=== PATIENT | female | born 1940 | race Caucasian/White ===

== ENCOUNTER → 2023-04-05 13:10 | Outpatient (CLI) | payer OTHER, SELFPAY ==
--- NOTE | ~2023-04-05 | DEXA_ITS ---
Bone Density Report Name: TIMOTEO GONZALES Age: 82 Sex: Female Ethnicity: White Date of : 1940 Indication: osteopenia; height loss; prior fracture; postmenopausal Referring Provider: FRANSISCO, EDDIE Study: Bone densitometry was performed. Exam Date: April 05, 2023 Accession number: [id number] Bone Density: Region BMD T-score Z-score Classification AP Spine (L1, L3, L4) 0.740 -2.8 -0.1 Osteoporosis Femoral Neck (Left) 0.629 -2.0 0.4 Osteopenia Total Hip (Left) 0.659 -2.3 -0.2 Osteopenia Femoral Neck (Right) 0.593 -2.3 0.1 Osteopenia Total Hip (Right) 0.666 -2.3 -0.1 Osteopenia Total Hip Mean 0.663 -2.3 -0.2 Osteopenia World Health Organization criteria for BMD impression classify patients as: Normal (T-score at or above -1.0), Osteopenia (T-score between -1.0 and -2.5), or Osteoporosis (T-score at or below -2.5). 10-year Fracture Risk: FRAX not reported because: Some T-score for Spine Total or Hip Total or Femoral Neck at or below -2.5 Previous Exams: Region Exam Age BMD T-score BMD Change BMD Change Date g/cm2 vs Baseline vs Previous AP Spine(L1, L3, L4) 04/05/2023 82 0.740 -2.8 -0.115* -0.115* 02/16/2007 66 0.855 -1.8 Total Hip(Left) 04/05/2023 82 0.659 -2.3 -0.107* -0.107* 02/16/2007 66 0.767 -1.4 Total Hip(Right) 04/05/2023 82 0.666 -2.3 -0.142* -0.142* 02/16/2007 66 0.808 -1.1 *Denotes significance at 95% confidence level, LSC for AP Spine = 0.022 g/cm2, LSC for Total Hip = 0.027 g/cm2 Clinical Information Provided by Patient: Has had a low trauma fracture Has used the following medications: Vitamin D Patient maximum height was 68 Menopause Age: 63 Drinks caffeinated beverages Onset of menses at age 14 Number of children 2 Impression: The patient has established osteoporosis, based on the Total Spine T-score and the existence of a prior fracture. The patient has risk factors, including: previous fracture. The BMD for the AP Spine(L1, L3, L4) decreased, changing by -0.115 since the last DXA exam. The BMD for the Total Hip(Left) decreased, changing by -0.107 since the last DXA exam. The BMD for the Total Hip(Right) decreased, changing by -0.142 since the last DXA exam. Discussion: HIGH RISK OF FRACTURE. BONE DENSITY IS UNDESIRABLY LOW AT ONE OR MORE SKELETAL SITES, CONSISTENT WITH POSTMENOPAUSAL OSTEOPOROSIS. This patient's lowest T-score, in a patient who has previousl
== END ==
PROVIDERS: PCP Nurse Practitioner Family; Visit Provider Nurse Practitioner Family
DX: Z78.0 Asymptomatic menopausal state (principal); Z13.820 Encounter for screening for osteoporosis; M85.89 Other specified disorders of bone density and structure, multiple sites
CPT/HCPCS: 77080

== ENCOUNTER → 2023-05-26 10:41 | Outpatient (CLI) | payer OTHER, SELFPAY ==
--- NOTE | ~2023-05-26 | XR_ITS ---
XR chest 2V 05/26/2023 10:57 Indication: Shortness of breath Procedure: 2 view chest Comparison: No prior studies for comparison. Findings: There is evidence for chronic granulomatous disease. Shallow aspiration with crowding of th e pulmonary vessels. Possible small effusions. Bibasilar dependent atelectasis. Impression: 1: Bibasilar atelectasis. 2: Blunting of the posterior costophrenic recesses, cannot exclude small effusion. Reviewed, dictated and finalized at location L. Impression: 1: Bibasilar atelectasis. 2: Blunting of the posterior costophrenic recesses, cannot exclude small effusi on.
== END ==
PROVIDERS: PCP Nurse Practitioner Family; Visit Provider Nurse Practitioner Family
DX: R06.02 Shortness of breath (principal); J98.11 Atelectasis; Z87.891 Personal history of nicotine dependence
CPT/HCPCS: 71046

== ENCOUNTER 2024-10-12 08:08 | Outpatient (CLI) | payer BC, SELFPAY ==
--- NOTE | ~2024-10-12 | XR_ITS ---
CHEST RADIOGRAPH, PA AND LATERAL CLINICAL HISTORY: dyspnea . COMPARISON: 05/26/2023 TECHNIQUE: PA and lateral views of the chest. FINDINGS Redemonstration of prominence of the right hilum secondary to calcified lymph nodes, likely from prio r granulomatous disease. Large hiatal hernia is redemonstrated, with air-fluid levels in the mediastinum. The remainder of the cardiomediastinal silhouette is otherwise unremarkable. Calcified granuloma redemonstrated within the right upper lobe. The remainder of the lungs are clear. IMPRESSION: No focal infiltrate or effusion. Large hiatal hernia with air-fluid levels in the mediastinum. Reviewed, dictated and finalized at location A.
--- OUTSIDE RECORDS SUMMARY | 2024-10-12 08:36 | XMS_ITS | Clinical Summary ---
Author Organization [facility] Address [address] [place] [address] Care Team Providers Care Printed Circuit Board Layout Designer Name Role Phone Tabitha Aponte NP Primary Care Provider [phone] Allergies Active Allergy Reactions Criticality Noted Date Comments Adhesive Rash Medium 05/31/2023 Band-aids are ok but tape is worse... paper tape ok Alcohol Stomach upset Low 01/30/2018 Alendronate Fatigue Low 08/29/2023 Honey Swelling Medium 12/30/2015 Naproxen Unknown Low 01/11/2019 Told not to take it by a pharmacist because of a drug allergy Sulfa (Sulfonamide Antibiotics) Angioedema High 12/30/2015 Medications albuterol HFA (PROVENTIL HFA,VENTOLIN HFA,PROAIR HFA) 90 mcg/actuation inhalerIndications: Chest congestion Inhale 2 puffs every 6 (six) hours as needed for wheezing 3 each 4 3 Active cetirizine (ZyrTEC) 10 mg tablet Take 1 tablet (10 mg total) by mouth daily Active cholecalciferol, vitamin D3, 1,000 unit tablet,chewable Take 1 tablet/chew tab by mouth daily Active calcium citrate 250 mg calcium tablet tablet Take 1 tablet (250 mg total) by mouth daily Active amiodarone (PACERONE) 100 mg tablet Take 1 tablet (100 mg total) by mouth daily 90 tablet 3 4 Active rivaroxaban (XARELTO) 20 mg tabletIndications:a trial fibrillation Take 1 tablet (20 mg total) by mouth daily with dinner 90 tablet 3 4 02/15/20 25 Active atorvastatin (LIPITOR) 40 mg tabletIndications:H yperlipidemia, unspecified hyperlipidemia type Take 1 tablet (40 mg total) by mouth nightly 90 tablet 1 4 Active furosemide (LASIX) 40 mg tabletIndications:A cute congestive heart failure, unspecified heart failure type (HCC) Take 1 tablet (40 mg total) by mouth daily 90 tablet 1 4 Active metoprolol tartrate (LOPRESSOR) 25 mg immediate release tabletIndications:H ypertension, essential Take 1 tablet (25 mg total) by mouth 2 (two) times a day 180 tablet 3 4 Active omeprazole (PriLOSEC) 20 mg capsuleIndications: Gastroesophageal reflux disease without esophagitis Take 1 capsule (20 mg total) by mouth 2 (two) times a day 180 capsule 3 4 Active potassium chloride ER 20 mEq CR tabletIndications:A cute congestive heart failure, unspecified heart failure type (HCC) Take 1 tablet (20 mEq total) by mouth daily 90 tablet 1 4 Active Active Problems Problem Noted Date Diagnosed Date Hypertension, essential 04/20/2024 Overview (04/20/2024): Continue metoprolol and amiodarone as directed. Blood pressure well controlled at 124/64 Hyperlipidemia 04/20/2024 Overview (04/20/2024): Continue atorvastatin 40 mg daily Other thrombophilia 12/20/2023 Paroxysmal atrial fibrillation 06/20/2023 Acute congestive heart failure 06/06/2023 Overview (06/06/2023): Continue Lasix daily as directed. Monitor for swelling Paleo daily weights Cerebrovascular accident (CVA), unspecified mech anism 05/27/2023 Chest congestion 05/26/2023 Class 1 obesity due to exces s calories without serious comorbidity with body mass index (BMI) of 34.0 to 34.9 in adult 05/26/2023 Assessment & Plan (04/20/2024 8:44 AM CDT): Discussed the patients BMI: The BMI is above average BMI management is complete. BMI follow-up includes: Nutrition Counseling and education provided Discussed the patients BMI: The BMI is above average BMI management is complete. BMI follow-up includes: Nutrition Counseling and education provided Chronic bilateral low back pain without sciatica 04/20/2023 BMI 34.0-34.9,adult 10/14/2022 Assessment & Plan (04/20/2023 9:03 AM CDT): Discussed the patients BMI: The BMI is above average BMI management is complete. BMI follow-up includes: Nutrition Counseling and education provided Assessment & Plan (10/14/2022 8:36 AM CDT): Discussed the patient's BMI. The BMI is above average. BMI management plan is completed. BMI Follow-up includes: nutrition counseling, exercise counseling and education provided. 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 BMI follow-up includes: Nutrition Counseling and education provided Assessment & Plan (07/05/2023 10:41 AM THIMBLE PRESS OPERATOR): Discussed the patients BMI: The BMI is above average BMI management is complete. BMI follow-up includes: Nutrition Counseling and education provided Assessment & Plan (06/03/2023 2:28 PM CDT): Discussed the patients BMI: The BMI is above average BMI management is complete. BMI follow-up includes: Nutrition Counseling and education provided Assessment & Plan (02/10/2022 12:37 PM CDT): Discussed the patient's BMI. The BMI is above average. BMI management plan is completed. BMI Follow-up includes: nutrition counseling, exercise counseling and education provided. Assessment & Plan (07/16/2021 7:23 AM THIMBLE PRESS OPERATOR): Obesity is unchanged. Discussed the patient's BMI. The BMI is above average. BMI management plan is completed. BMI Follow-up includes: nutrition counseling, exercise counseling and education provided. 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 Keratoconjunctivitis sicca, not specified as Sjogren's, bilateral 07/14/2021 Open angle with borderline findings, low risk, b ilateral 07/14/2021 Squamous blepharitis left upper eyelid 1 Radius and ulna distal fract ure, right, closed, initial encounter 07/14/2021 Vitamin D deficiency 05/28/2021 Assessment & Plan (07/16/2021 7:20 AM THIMBLE PRESS OPERATOR): labs entered, will notify patient of results as available Closed fracture of upper end of right ulna with routine healing 05/27/2021 Seasonal allergies 05/06/2020 Age-related nuclear cataract, bilateral 01/12/20 19 Prediabetes 12/09/2016 Gastroesophageal reflux disease without esophagi tis 12/08/2015 Assessment & Plan (07/16/2021 7:21 AM THIMBLE PRESS OPERATOR): Continue medication same at this time Hiatal hernia 07/21/2015 Assessment & Plan (07/16/2021 7:20 AM THIMBLE PRESS OPERATOR): Continue prilosec same dosing at this time Infection of bone of left ankle 05/04/2015 Painful orthopaedic hardware 05/04/2015 Resolved Problems Problem Noted Date Diagnosed Date Resolved Date Longstanding persistent atrial fibrillation 06/03/2023 06/20/2023 Encounter to establish care 07/16/2021 02/10/2022 BMI 37.0-37.9, adult 07/16/2021 022 Assessment & Plan (07/16/2021 7:23 AM THIMBLE PRESS OPERATOR): Obesity is unchanged. Discussed the patient's BMI. The BMI is above average. BMI management plan is completed. BMI Follow-up includes: nutrition counseling, exercise counseling and education provided. Refused influenza vaccine 07/21/2015 Ankle wound 06/11/2015 02/10/2022 Encounters Date Type Department Care Team Description 10/03/2024 1:00 PM THIMBLE PRESS OPERATOR Office Visit [facility] [address] [place] [phone] Sultan Joseph Brizuela MD Exertional dyspnea (Primary Dx); On amiodarone therapy from Last 3 Months Immunizations Immunization Administration Dates Next Due Influenza, Quadrivalent, Hig h Dose, Preservative Free, Intrr 06/01/2023 Influenza, Quadrivalent, Rec ombinant, Egg Free, Preservative Free, Intramuscular 05/06/2020 Influenza, Trivalent, High D ose, Split, Preservative Free, Intramuscular 05/10/2019,04/17/2018,06/08/2016 Influenza, Unspecified 08/01/2022(Deferr ed: Patient Refused),08/01/2022(Deferred: Patient Refused),06/01/2022,05/10/2019, 018,06/08/2016 Pfizer SARS-CoV-2 Monovalent Vaccination (12+ Yrs) PURPLE 01/15/2022,07/27/2021,01/07/2021,12/02 Pneumococcal Conjugate PCV 13 09/23/2016 Pneumococcal Polysaccharide PPV23 07/23/2015 Tdap 02/08/2018 Surgical History Surgery Date Site/Laterality Comments FRACTURE SURGERY CATARACT EXTRACTION HERNIA REPAIR Medical History Medical History Date Comments GERD (gastroesophageal reflux disease) Allergic Family History Medical History Relation Name Comments Heart disease Father Hypertension Father Heart disease Mother Hypertension Mother Ovarian cancer Mother perforated bowel Mother Relation Name Status Comments Father Mother Social History Tobacco Use Types Packs/Day Years Used Date Smoking Tobacco: Former Cigarettes 1 7 1991 Smokeless Tobacco: Never Tobacco Cessation:Counseling Given: Not Answered Social Connection and Isolat ion Panel [NHANES] Answer Date Recorded In a typical week, how many times do you talk on the phone with family, friends, or neighbors? More than three times a week 05/30/2023 How often do you get togethe r with friends or relatives? More than three times a week 05/30/2023 How often do you attend chur or caodaism services? Never 05/30/2023 Do you belong to any clubs o r organizations such as adventism groups, unions, fraternal or athletic groups, or school groups? No 05/30/2023 How often do you attend meet ings of the clubs or organizations you belong to? Never 05/30/2023 Are you , , di vorced, , never , or living with a partner? 05/30/2023 AUDIT-C Answer Date Recorded Q1: How often do you have a drink containing alcohol? Never 02/10/2022 Q2: How many drinks containi ng alcohol do you have on a typical day when you are drinking? Patient does not drink Q3: How often do you have si x or more drinks on one occasion? Never 02/10/2022 Overall Financial Resource Strain (CARDIA) Answe r Date Recorded How hard is it for you to pa y for the very basics like food, housing, medical care, and heating? Not very hard 05/31/2023 PHQ-2 Answer Date Recorded PHQ-2 Total Score (If total score is 3 or more points, staff should administer the PHQ-9) 0 04/20/2024 Hunger Vital Sign Answer Date Recorded Within the past 12 months, y ou worried that your food would run out before you got the money to buy more. Never true 05/30/20 23 Within the past 12 months, t he food you bought just didn't last and you didn't have money to get more. Never true 05/30/2023 PRAPARE - Transportation Answer Date Re corded In the past 12 months, has l ack of transportation kept you from medical appointments or from getting medications? No 05/03 In the past 12 months, has l ack of transportation kept you from meetings, work, or from getting things needed for daily living? No 05/30/2023 Housing Stability Vital Sign Answer Ned e Recorded In the last 12 months, was t here a time when you were not able to pay the mortgage or rent on time? No 05/30/2023 In the last 12 months, how many places have you lived? 1 05/30/2023 In the last 12 months, was t here a time when you did not have a steady place to sleep or slept in a longterm (including now)? No 05/30/2023 Personal Safety Answer Date Recorded Have you ever been in or are you currently in a harmful physical or emotional relationship or is someone making you feel afraid or unsafe? Denies 05/27/2023 Comments No Sex and Gender Information Value Date Recorded Sex Assigned at Not on file Legal Sex Female 7:10 PM THIMBLE PRESS OPERATOR Gender Identity Not on file Sexual Orientation Not on file Obstetrics History Last Filed Vital Signs Vital Sign Reading Time Taken Comments Blood Pressure 128/64 10/03/2024 12:56 PM THIMBLE PRESS OPERATOR Pulse 53 10/03/2024 12:56 PM THIMBLE PRESS OPERATOR Temperature 36.9 C (98.4 F) 04/20/2024 8:34 AM CDT Respiratory Rate 16 06/01/2023 10:58 AM CDT Oxygen Saturation 96% 10/03/2024 12:56 PM THIMBLE PRESS OPERATOR Inhaled Oxygen Concentration - - Weight 83.5 kg (184 lb) 10/03/2024 12:56 PM THIMBLE PRESS OPERATOR Height 157.5 cm (5' 2 ) 04/20/2024 8:34 AM CDT Body Mass Index 33.65 04/20/2024 8:34 AM CDT Plan of Treatment Health Maintenance Due Date Last Done Comments Hepatitis B Screening 1958 Zoster Vaccine (1 of 2) 1991 Covid-19 Vaccine (2023-2 5 season) 2024 01/15/2022, 07/27/2021, 01/07/2021, Additional history exists Influenza Vaccine (#1) 2024 , 06/01/2022, 05/06/2020, Additional history exists Well Visit 65+ 10/18/2024 10/19/2023, 04/02, 02/10/2022 Osteoporosis Screening-Bone Density Scan 04/11/2025 04/11/2023 Depression Screening 04/20/2025 04/20/2024, 10/19/2023, 07/05/2023, Additional history exists Fall Risk Assessment 04/20/2025 04/20/2024, 10/19/2023, 07/05/2023, Additional history exists DTaP/Tdap/Td Vaccine (2 - Td or Tdap) 02/09/2028 02/08/2018 Pneumococcal vaccine 65+ Completed 09/23/2016, 07/02 Procedures Procedure Name Priority Date/Time Associated Diagnosis Comments DEXA AXIAL SKELETON BONE DENSITY 1 OR MORE SITES Schedule Routine, Read Routine (OP Routine) 04/11/2023 Menopause from Last 3 Months or Most Recently Relevant to Health Maintenance Results * Dexa Axial Skeleton Bone Density 1 or 2 Site (04/11/2023) Anatomical Region Laterality Modality Body N/A Radiographic Negra ging Nelida GREWAL IMG DXA PROCEDURES Final R esult from Last 3 Months or Most Recently Relevant to Health Maintenance Insurance MEDICARE ANTHEM ACCESS Advance Directives For more information, please contact: [phone] * Full Code (Latest Code Status on File) Date Activated Date Inactivated Comments 05/27/2023 10:19 PM 06/01/2023 9:09 PM Care Teams Printed Circuit Board Layout Designer Relationship Specialty Start Date End Date Tabitha Aponte NP [address] [facility] [address] [place] [address] PCP - General Internal Medicine 10/14/22
--- OUTSIDE RECORDS SUMMARY | 2024-10-12 08:36 | XMS_ITS | Encounter Summary ---
Author Organization [facility] Address [address] [facility] [place] [address] Care Team Providers Care Client Relationship Manager Name Role Phone Tonia Chi MD Unavailable Kodi Salvador MD Primary Care Provider [phone] Narciso Medrano MD Primary Care Provider [phone] Kodi Rico MD Primary Care Provider Shasta Jean SHEET METAL LAY OUT WORKER-CEMENT RAILROAD CAR LOADER Unavailable [phone] Narciso Medrano MD Primary Care Provider Narciso Medrano MD Primary Care Provider [phone] Encounter Details Date Type Department Care Team (Late st Contact Info) Description 04/24/2015 [facility] Outpatient Visit [facility] Health Orthopedics [address] [place] [address] Eva Sky MD [address] [place] [id number] Social History Tobacco Use Types Packs/Day Years Used Date Smoking Tobacco: Former Alcohol Use Standard Drinks/Week Comments No 0 (1 standard drink = 0.6 oz pur e alcohol) Sex and Gender Information Value Date Recorded Sex Assigned at Female 08/07/2021 9:06 AM CENTRIFUGE SEPARATOR TENDER Gender Identity Female 08/07/2021 9:06 AM CENTRIFUGE SEPARATOR TENDER Sexual Orientation Straight 08/07/2021 9: 06 AM CENTRIFUGE SEPARATOR TENDER documented as of this encounter Plan of Treatment Not on file documented as of this encounter Visit Diagnoses Not on filedocumented in this encounter Care Teams Client Relationship Manager Relationship Specialty Start Date End Date Kodi Salvador MD [address] [place] [id number] PCP - General Family Medicine 04/16/15 07/20/15 Narciso Medrano MD [address] [place] [address] PCP - General Family Medicine 07/21/15 01/10/19 Kodi Rico MD [address] [place] [id number] PCP - General 01/11/19 02/05/19 Narciso Medrano MD [address] [place] [id number] PCP - General 05/20/21 07/09/21 Narciso Medrano MD [address] [place] [id number] PCP - General 08/17/21 Tonia Chi MD Orthopedic Surgery 04/04/13 07/20/15 Shasta Jean APRN-CARYN [address] [facility] [place] [address] Nurse Practitioner Family 01/01/2107/09/21 documented as of this encounter
--- OUTSIDE RECORDS SUMMARY | 2024-10-12 08:36 | XMS_ITS | Encounter Summary ---
Author Organization [facility] Facility Care Team Providers Care Defect Repairer Glassware Name Role Phone Narciso Medrano MD Primary Care Provider [phone] Nelida Bunn Primary Care Provider [phone] Tabitha Aponte NP Primary Care Provider [phone] Encounter Details Date Type Department Care Team (Latest Contact Info) Description 04/16/2015 Orders Only [facility] ProviderAlexander MD [address] [place] [id number] Social History Tobacco Use Types Packs/Day Years Used Date Smoking Tobacco: Never Assessed Comments Unknown Sex and Gender Information Value Date Recorded Sex Assigned at Not on file Legal Sex Female 7:10 PM CHANNEL MACHINE OPERATOR Gender Identity Not on file Sexual Orientation Not on file documented as of this encounter Plan of Treatment Not on file documented as of this encounter Procedures Procedure Name Priority Date/Time Associated Diagnosis Comments PROCEDURE - RESULT 04/16/2015 12 :00 AM CDT documented in this encounter Results * PROCEDURE - RESULT (04/16/2015 12:00 AM CDT) Narrative 04/16/2015 12:00 AM CDT Ordered by an unspecified provider. Historical Provider Final Res ult documented in this encounter Visit Diagnoses Not on filedocumented in this encounter Additional Health Concerns Infection Onset Date Last Indicated Resolved Time COVID: Suspected 05/26/2023 05/26/2023 05/26/2023 9:35 AM CDT documented as of this encounter Care Teams Defect Repairer Glassware Relationship Specialty Start Date End Date Narciso Medrano MD PCP - General Family Medicine 07/07/19 03/07/22 Nelida Bunn PA PCP - General Aircraft Maintenance Technician 03/08/22 10/13/22 Tabitha Aponte NP [address] [address] PCP - General Internal Medicine 10/14/22 documented as of this encounter
--- OUTSIDE RECORDS SUMMARY | 2024-10-12 08:36 | XMS_ITS | Encounter Summary ---
Author Organization [facility] Address [address] [place] [address] Care Team Providers Care Rand Butter Name Role Phone Narciso Medrano MD Primary Care Provider [phone] Kodi Rico MD Primary Care Provider [phone] Shasta Jean NUMEROLOGIST-DOOR LINER Unavailable [phone] Narciso Mderano MD Primary Care Provider [phone] Narciso Medrano MD Primary Care Provider [phone] Encounter Details Date Type Department Care Team (Late st Contact Info) Description 12/09/2016 [facility] Outpatient Visit [facility] [address] [place] [address] Narciso Medrano MD [address] [place] [address] Social History Tobacco Use Types Packs/Day Years Used Date Smoking Tobacco: Former Cigarettes 0.3 25 0 08/01/1967 - 08/01/1992 Smokeless Tobacco: Never Alcohol Use Standard Drinks/Week Comments No 0 (1 standard drink = 0.6 oz pur e alcohol) Sex and Gender Information Value Date Recorded Sex Assigned at Female 08/07/2021 9:06 AM SHINGLE BOLT CUTTER Gender Identity Female 08/07/2021 9:06 AM SHINGLE BOLT CUTTER Sexual Orientation Straight 08/07/2021 9: 06 AM SHINGLE BOLT CUTTER documented as of this encounter Functional Status Functional Status Response Date of Assess ment Is person deaf or have serious hearing difficult y? No 05/02/2015 Is person blind or have serious difficulty seein g? No 05/02/2015 Does person have serious dif ficulty walking/climbing stairs? No 05/02/2015 Does person have difficulty dressing/bathing? No 05/02/2015 Does person have difficulty doing errands alone? No 05/02/2015 Cognitive Status Response Date of Assessm ent Does person have difficulty concentrating/remembering/making decisions? No 05/02/2015 documented as of this encounter Plan of Treatment Not on file documented as of this encounter Goals Goal Patient Goal Type Associated Problems Recent Progress Patient-Stated? Author Have labs drawn Lifestyle No Harper Pierre MA documented as of this encounter Visit Diagnoses Not on filedocumented in this encounter Care Teams Rand Butter Relationship Specialty Start Date End Date Narciso Medrano MD PCP - General Family Medicine 07/21/15 01/10/19 Kodi Rico MD PCP - General 01/11/19 02/05/19 Narciso Medrano MD PCP - General 05/20/21 07/09/21 Narciso Medrano MD PCP - General 08/17/21 Shasta Jean APRN-DOOR LINER Nurse Practitioner Family 01/01/2107/09/21 documented as of this encounter
--- OUTSIDE RECORDS SUMMARY | 2024-10-12 08:36 | XMS_ITS | Encounter Summary ---
Author Organization [facility] Address [address] [place] [address] Care Team Providers Care Senior Sales Executive Name Role Phone Shasta Jean SPANISHER-YEAST SUPERVISOR Unavailable [phone] Narciso Medrano MD Primary Care Provider [phone] Narciso Medrano MD Primary Care Provider [phone] Encounter Details Date Type Department Care Team (Late st Contact Info) Description 05/06/2020 [facility] Outpatient Visit [facility] - Family Medicine [address] [place] [address] Narciso Medrano MD [address], [place] [id number] Social History Tobacco Use Types Packs/Day Years Used Date Smoking Tobacco: Former Cigarettes 0.3 25 0 08/01/1967 - 08/01/1992 Smokeless Tobacco: Never Alcohol Use Standard Drinks/Week Comments No 0 (1 standard drink = 0.6 oz pur e alcohol) Sex and Gender Information Value Date Recorded Sex Assigned at Female 08/07/2021 9:06 AM CARTON CATCHER Gender Identity Female 08/07/2021 9:06 AM CARTON CATCHER Sexual Orientation Straight 08/07/2021 9: 06 AM CARTON CATCHER COVID-19 Exposure Response Date Recorded In the last month, have you been in contact with someone who was confirmed or suspected to have Coronavirus / COVID-19? No / Unsure 04/18/2020 10:40 AM CDT documented as of this encounter Functional Status [...] on filedocumented in this encounter Care Teams Senior Sales Executive Relationship Specialty Start Date End Date Narciso Medrano MD PCP - General 05/20/21 07/09/21 Narciso Medrano MD PCP - General 08/17/21 Shasta Jean APRN-CARYN Nurse Practitioner Family 01/01/2107/09/21 documented as of this encounter
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
--- OUTSIDE RECORDS SUMMARY | 2024-10-12 08:36 | XMS_ITS | Referral Summary ---
Author Organization [facility] Address [address] [place] [address] Care Team Providers Care Sqe Name Role Phone Tabitha Aponte NP Primary Care Provider [phone] Encounters Date Type Department Care Team Description 10/03/2024 1:00 PM CONSTRUCTION ELECTRICIAN Office Visit [facility] Cardiology [address] [place] [address] Sultan Joseph Brizuela MD Exertional dyspnea (Primary Dx); On amiodarone therapy from Last 3 Months Allergies Active Allergy Reactions Criticality Noted Date [...] 07/16/2021 Assessment & Plan (07/16/2021 7:20 AM CONSTRUCTION ELECTRICIAN): Per patient history, no acute symptoms Menopause 07/16/2021 Assessment & Plan (07/16/2021 7:21 AM CONSTRUCTION ELECTRICIAN): Advised BMD Closed fracture of right forearm 07/16/2021 Assessment & Plan (07/16/2021 7:23 AM CONSTRUCTION ELECTRICIAN): Continue with care per ortho Obesity (BMI 30-39.9) 07/16/2021 Assessment & Plan (10/19/2023 9:19 AM CDT): Discussed the patients BMI: The BMI is above average BMI management is complete. BMI follow-up includes: Nutrition Counseling and education provided Assessment & Plan (07/05/2023 10:41 AM CONSTRUCTION ELECTRICIAN): Discussed the patients BMI: The BMI is [...] provided. Assessment & Plan (07/16/2021 7:23 AM CONSTRUCTION ELECTRICIAN): Obesity is unchanged. Discussed the patient's BMI. The BMI is above average. BMI management plan is completed. BMI Follow-up includes: nutrition counseling, exercise counseling and education provided. 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 Keratoconjunctivitis sicca, not specified as Sjogren's, bilateral 07/14/2021 Open angle with borderline findings, low risk, b ilateral 07/14/2021 Squamous blepharitis left upper eyelid Radius and ulna distal fract ure, right, closed, initial encounter 07/14/2021 Vitamin D deficiency 05/28/2021 Assessment & Plan (07/16/2021 7:20 AM CONSTRUCTION ELECTRICIAN): labs entered, will notify patient of results as available Closed fracture of upper end of right ulna with routine healing 05/27/2021 Seasonal allergies 05/06/2020 Age-related nuclear cataract, bilateral 01/12/20 19 Prediabetes 12/09/2016 Gastroesophageal reflux disease without esophagi tis 12/08/2015 Assessment & Plan (07/16/2021 7:21 AM CONSTRUCTION ELECTRICIAN): Continue medication same at this time Hiatal hernia 07/21/2015 Assessment & Plan (07/16/2021 7:20 AM CONSTRUCTION ELECTRICIAN): Continue prilosec same dosing at this time Infection of bone of left ankle 05/04/2015 Painful orthopaedic hardware 05/04/2015 Resolved Problems Problem Noted Date Diagnosed Date Resolved Date Longstanding persistent atrial fibrillation 06/03/2023 06/20/2023 Encounter to establish care 07/16/2021 02/10/2022 BMI 37.0-37.9, adult 07/16/2021 022 Assessment & Plan (07/16/2021 7:23 AM CONSTRUCTION ELECTRICIAN): Obesity is unchanged. Discussed the patient's BMI. The BMI is above average. BMI management plan is completed. BMI Follow-up includes: nutrition counseling, exercise counseling and education provided. Refused influenza vaccine 07/21/2015 Ankle wound 06/11/2015 02/10/2022 Immunizations Immunization Administration Dates Next Due Influenza, Quadrivalent, Hig h Dose, Preservative Free, Intrr 06/01/2023 Influenza, Quadrivalent, Rec ombinant, Egg Free, Preservative Free, Intramuscular 05/06/2020 Influenza, Trivalent, High D ose, Split, Preservative Free, Intramuscular 05/10/2019,04/17/2018,06/08/2016 Influenza, Unspecified 08/01/2022(Deferr ed: Patient Refused),08/01/2022(Deferred: Patient Refused),06/01/2022,05/10/2019, 018,06/08/2016 Pfizer SARS-CoV-2 Monovalent Vaccination (12+ Yrs) PURPLE 01/15/2022,07/27/2021,01/07/2021,12/02 Pneumococcal Conjugate PCV 13 09/23/2016 Pneumococcal Polysaccharide PPV23 07/23/2015 Tdap 02/08/2018 Social History Tobacco Use Types Packs/Day Years Used Date Smoking Tobacco: Former Cigarettes 1 977 - 1991 Smokeless Tobacco: Never Tobacco Cessation:Counseling Given: [...] 05/30/2023 How often do you attend chur ch or synagogue services? Never 05/30/2023 Do you belong to any clubs o r organizations such as baptist groups, unions, fraternal or athletic groups, or [...] place to sleep or slept in a senior living (including now)? No 05/30/2023 Personal Safety Answer Date Recorded Have you ever been in or are you currently in a harmful physical or emotional relationship or is someone making you feel afraid or unsafe? Denies 05/27/2023 Comments No Sex and Gender Information Value Date Recorded Sex Assigned at Not on file Legal Sex Female 7:10 PM CONSTRUCTION ELECTRICIAN Gender Identity Not on file Sexual Orientation Not on file Last Filed Vital Signs Vital Sign Reading Time Taken Comments Blood Pressure 128/64 10/03/2024 12:56 PM CONSTRUCTION ELECTRICIAN Pulse 53 10/03/2024 12:56 PM CONSTRUCTION ELECTRICIAN Temperature 36.9 C (98.4 F) 04/20/2024 8:34 AM CDT Respiratory Rate 16 06/01/2023 10:58 AM CDT Oxygen Saturation 96% 10/03/2024 12:56 PM CONSTRUCTION ELECTRICIAN Inhaled Oxygen Concentration - - Weight 83.5 kg (184 lb) 10/03/2024 12:56 PM CONSTRUCTION ELECTRICIAN Height 157.5 cm (5' 2 ) 04/20/2024 8:34 AM CDT Body Mass Index 33.65 04/20/2024 8:34 AM CDT Plan of Treatment Not on file Procedures Procedure Name Priority Date/Time Associated Diagnosis [...] Recently Relevant to Health Maintenance Insurance MEDICARE iwi Advance Directives For more information, please contact: [phone] * Full Code (Latest Code Status on File) Date Activated Date Inactivated Comments 05/27/2023 10:19 PM 06/01/2023 9:09 PM Care Teams Sqe Relationship Specialty Start Date End Date Tabitha Aponte NP [address] [facility] [address] [place] [address] PCP - General Internal Medicine 10/14/22
--- OUTSIDE RECORDS SUMMARY | 2024-10-12 08:36 | XMS_ITS | Data Portability ---
Author Organization [facility], Main Office Address [address] [place] [address] Assessment Encounter Date Assessment Date Assessment LastModified by Organization Details LastModified Time 08/30/2024 08/30/2024 This note is dictated and transcribed by [employer]. Auto Service Dispatcher variances may occur. Despite proofreading, typographical errors may occur. Occasional wrong-word or 'pzeig-h-vxxv' substitutions may have occurred due to the inherent limitations of voice recording. Read the chart carefully and recognize, using context, where substitutions have occurred. [email or web address] Not available 08/30/2024 12:58:04 09/10/2024 09/10/2024 This note is dictated and transcribed by [employer]. Auto Service Dispatcher variances may occur. Despite proofreading, typographical errors may occur. Occasional wrong-word or 'qxvwu-h-hdsq' substitutions may have occurred due to the inherent limitations of voice recording. Read the chart carefully and recognize, using context, where substitutions have occurred. [email or web address] Not available 09/10/2024 09:28:24 Plan of Treatment Reminders Order Date Submit Date Provider Last Modified By Organization Details Last Modified Time Details Appointments Follow Up 15 2024 09:00A Hardik Branch DPM Not available Not available Not available Lab None recorded . Referral None recorded . Procedures None recorded . Surgeries None recorded . Imaging None recorded . Medication Orders None recorded . Patient TargetsNo targets recorded. Patient InstructionsNo instructions recorded. Reason for Referral None Reported. Problems Name Problem SNOMED Code Status Onset Date Resolution Date Notes Provider Name and Address Organization Details Recorded Time Seasonal allergy 961943123 Active 2022 Kia britton, [facility] 14:04:50 Dystrophia unguium 38121193 Active 2022 Gallito Branch DPM [address], [place], [address] , [facility] 14:21:58 Foot callus 436376304 Active 2022 Gallito Branch DPM [address], [place], [address] , [facility] 14:22:02 Metatarsalgia 78342037 Active 2022 Gallito Branch DPM [address], [place], [address] , [facility] 14:22:12 Pain in toe 252698525 Active 2024 Gallito Branch DPM [address], [place], [address] , [facility] 12:58:27 Foreign body of foot 832583624 Active 2024 Gallito Branch DPM [address], [place], [address] , [facility] 12:58:58 Problem Notes None recorded. Procedures Surgical History Date Name Laterality Status Provider Name and Address Organization Details Recorded Time 08/30/19 25 Nail Debridement completed Gallito Branch DPM [address], [place], [address], [facility] 08/30/2024 12:54:02 08/30/19 25 Removal of Foreign Body completed Gallito Branch DPM [address], [place], [address], [facility] 08/30/2024 12:57:10 02/22/20 23 Nail Debridement completed Gallito Branch DPM [address], [place], [address], [facility] 02/21/2023 14:21:53 07/24/20 23 Callus Debridement 2-4 completed Gallito Branch DPM [address], [place], [address], [facility] 02/21/2023 14:21:42 08/01/18 98 Hernia Repair completed Kia Burgos [facility] 02/21/2023 14:07:29 Imaging Results None recorded. Procedure Notes None recorded. Medical Equipment None Reported. Allergies Allergen ID Allergen Name Allergen Category Reaction Reaction Severity Criticality Documentation Date Start Date Code Code System Note Provider Name and Address Organization Details Recorded Time 37397 honey preparati on food,medi cation Not available Not available Not available 02/21/2023 36426 9 RxNorm Kia Burgos [facility] 14:03:57 25500 ethanol environme nt,medica tion Not available Not available Not available 02/21/2023 448 RxNorm Kia Burgos [facility] 14:04:11 Medications Name Sig Start Date Stop Date Status Note LastModified by Organization Details LastModified Time losartan 50 mg tablet Take 1 tablet every day by oral route. active Not Available Not Available No t Available furosemide 40 mg tablet TAKE 1 TABLET BY MOUTH EVERY DAY 09/10 completed Not Available Not Available Not Available pioglitazone 15 mg tablet Take 1 tablet every day by oral route. active Not Available Not Available No t Available atorvastatin 40 mg tablet TAKE 1 TABLET BY MOUTH EVERY DAY AT NIGHT active Not Available Not Available No t Available metformin 500 mg tablet Take 1 tablet twice a day by oral route. active Not Available Not Available No t Available prednisone 20 mg tablet 02/21 completed Not Available Not Available Not Available penicillin V potassium 500 mg tablet 02/21 completed Not Available Not Available Not Available clopidogrel 75 mg tablet Take 1 tablet every day by oral route. active Not Available Not Available No t Available tramadol 50 mg tablet 02/21 completed Not Available Not Available Not Available glimepiride 2 mg tablet Take 1 tablet every day by oral route. active Not Available Not Available No t Available benzonatate 100 mg capsule 02/21 completed Not Available Not Available Not Available omeprazole 20 mg capsule,amos yed release TAKE 1 CAPSULE BY MOUTH TWICE A DAY active Not Available Not Available No t Available letrozole 2.5 mg tablet Take 1 tablet every day by oral route. active Not Available Not Available No t Available Klor-Con M20 mEq tablet,exten ded release TAKE 1 TABLET BY MOUTH EVERY DAY active Not Available Not Available No t Available amiodarone 100 mg tablet TAKE 1 TABLET BY MOUTH EVERY DAY 09/10 completed Not Available Not Available Not Available metoprolol tartrate 25 mg tablet TAKE 1 TABLET BY MOUTH TWICE A DAY active Not Available Not Available No t Available nitrofuranto in monohydrate/ macrocrystal s 100 mg capsule active Not Available Not Available Not Available aspirin active Not Available Not Avail able Not Available Xarelto 20 mg tablet TAKE 1 TABLET BY MOUTH EVERY DAY WITH DINNER active Not Available Not Available No t Available Paxlovid 300 mg (150 mg x 2)-100 mg tablets in a dose pack 02/21 completed Not Available Not Available Not Available Vitals Date Recorded Body height Body mass index (BMI) Body weight Provider Name and Address Organization Details Last Updated DateTime 02/21/2023 157.48 cm 34.6 kg/m2 95240.96 g Kia Burgos [facility] [employer] 02/21/2023 14:02:38 Date Recorded Heart rate Respiratory rate Oxygen saturation Oxygen saturation in Arterial blood by Pulse oximetry Systolic blood pressure Diastolic blood pressure Provider Name and Address Organization Details Last Updated DateTime 3 80 /min 14 /min 98 % 98 % 141 mm[Hg] 82 mm[Hg] Mickie Garner [facility] [employer] [facility] 3 14:04:30 Date Recorded Body height Body mass index (BMI) Body weight Heart rate Respiratory rate Body temperature Systolic blood pressure Diastolic blood pressure Provider Name and Address Organization Details Last Updated DateTime 5 157.48 cm 34.6 kg/m2 36369.9 6 g 80 /min 14 /min 98.6 [degF] 140 mm[Hg] 80 mm[Hg] Colleen Estrada MA [facility] [employer] [facility] 5 12:32:15 Date Recorded Body height Body mass index (BMI) Body weight Heart rate Systolic blood pressure Diastolic blood pressure Provider Name and Address Organization Details Last Updated DateTime 5 157.48 cm 34.6 kg/m2 99089.9 6 g 66 /min 118 mm[Hg] 63 mm[Hg] Kia Burgos [facility] 09:12:37 Social History Question Answer Notes LastModified by Organizat ion Details LastModified Time Tobacco Smoking Status Former Smoker Kia britton, [facility] 02/21/2023 14:05:38 What Is Your Level Of Alcohol Consumption? None [email or web address] Information not available 02/21/2023 Sex: Unknown Functional Status None recorded. Mental Status None recorded. Family History Relationship Description Onset Age of this Age Resolved Age Notes LastModified by Organization Details LastModified Time Father Hypertensive disorder [email or web address] Not available 2022 14:05:10 Mother Hypertensive disorder [email or web address] Not available 2022 14:05:10 Brother Heart disease [email or web address] Not available 2022 14:05:20 Sister Heart disease [email or web address] Not available 2022 14:05:20 Medical History Condition Response ALLERGIES/HAYFEVER Y Gynecological HistoryNo gynecological history recorded. Obstetrics History GPAL:G 0 P 0 0 0 0 Past Encounters Encounter ID Performer Location Encounter Start Date Encounter Closed Date Diagnosis/Indication Diagnosis SNOMED-CT Code Diagnosis ICD10 Code Diagnosis Note [id number] Gallito Branch DPM [facility] Babar Joyce [address] [place] [address] 02/21/2023 13:46:48 02/21/2023 14:25:46 Dystrophia unguium 24066746 L60.3 Nails 1 through 10 were debrided with sharp mechanical debridemen t without incident. Nails were debrided and greater than 50% length and thickness where needed. Foot callus 510606428 L8 4 bilateral feet debrided without incidentEd ucated on conditionE ducated on use of lotionEduc ated on use of pumice stoneFollo w-up as needed Metatarsalgia 45805525 M 77.40 both feetEducat ed on shoe gearFollow -up as needed if continues to be problemati c may require orthotics with metatarsal head offloading [id number] Gallito Branch DPM [facility] Podiatry [address] [place] [address] 08/30/2024 12:08:13 08/30/2024 13:20:33 Foreign body of foot 833529875 S99.822A left heelremova l foreign body todaywound care reviewed with the patient- perform daily until healedMoni tor for signs of infection at present seek medical attention immediatel yFollow-up week Pain in toe 451726234 M7 9.674 M79.675 bilateral great toessecond guy to thickened toenailsde brided without incidentre viewed treatment optionspat ient elects to continue with conservati ve therapy with nail debridemen ts on her own Dystrophia unguium 69698 009 L60.3 Nails 1 through 10 were debrided with sharp mechanical debridemen t without incident. Nails were debrided and greater than 50% length and thickness where needed. [id number] Gallito Branch DPM [facility] [address] [place] [address] 09/10/2024 09:02:57 09/10/2024 09:30:31 Foreign body of foot 412645588 S99.822A left heelWound area healedno further issues with weight-camila ringmay continue normal shoe gearfollow -up as needed for this issue Dystrophia unguium 53670 009 L60.3 follow-up Q 3 months as needed Health Concerns Section Related Observation LastModified by Organization Detai ls LastModified Time None Recorded Concern Status LastModified by Organization Details LastModified Time None Recorded Advance Directives Directive None Recorded Payers Encounter Date Sequence Insurance Name Policy Number Policy Epperson Covered Member ID Epperson Member ID Guarantor Name 02/21/2023 1 [facility] [id number] Cherelle Calhoun [id number] Cherelle Calhoun 08/30/2024 1 [place] [id number] 1 Cherelle Calhoun [id number] Calhoun 09/10/2024 1 [place] [id number] 1 Cherelle Calhoun [id number] Calhoun Notes Date Note Type Note Provider Name and Address Organization Details Recorded Time 02/21/2023 text/html . Patient is an 82-year-old female who presents the office with complaints of bilateral foot pain and nail thickening to both great toes. Patient states that she has developed several calluses on both feet which cause her pain. Patient has a history of injury to her left foot to which she had an open reduction internal fixation. Patient appears to have a stable foot. Patient denies any pain to the area of hardware. Patient states she has had a previous infection at the hardware as well which she denies any further complications. Patient states that she only has pain at the areas of her calluses and her toenails. Patient states she has difficulty cutting her nails would like to have them cut. Patient denies any other complaints. Gallito Branch DPM [address] [employer], [place], [address], [facility] 02/21/2023 14:24:45 08/30/2024 text/html Patient is an 84-year-old female she presents the office with complaints of pain to her left heel she states it is a sharp pain she states she has a old wood floor in her home she states that she stepped on a piece of wood which broke off in her heel she states that she was able to remove some of it but she feels there is still some left in the foot as when she is walking she has some minor discomfort she denies any signs of infection. Patient denies any pain when she is at rest. Patient states that she also has complaints nail dystrophy to both great toes she states that the nails are thickened and painful. Patient states when she is wearing shoe gear they are causing discomfort. Patient states she has injured the toenails in the past which is likely the cause for the nail dystrophy. Patient denies any other complaints. Gallito Branch DPM [address], [place], [address], [facility] 08/30/2024 13:02:12 09/10/2024 text/html . Patient is a 84-year-old female who returns the office for follow-up on foreign body removal. Patient states overall she is doing well she denies any new complaints. Patient states the area healed up well she denies any signs of infection or pain to the area. Patient has been walking without difficulty. Patient denies any other complaints. Gallito Branch, ROHITH [address], [place], [address], [facility] 09/10/2024 09:29:09 OBGyn Episode No OBEpisode recorded.
--- OUTSIDE RECORDS SUMMARY | 2024-10-12 08:36 | XMS_ITS | Clinical Summary ---
Author Organization [facility] Address [address] [place] [address] Care Team Providers Care Creative Producer Name Role Phone Narciso Medrano MD Primary Care Provider [phone] Source Comments [facility],non-owned Affiliates and Associated Physician Practices is amultiple site organization consisting of ambulatory clinics and hospital sitesin [place], [place], [place] and [place]. This disclosure is being madepursuant to the Care Everywhere program and may not contain all information available regarding this patient. Last updated 18.[facility] [employer] Allergies Active Allergy Reactions Criticality Noted Date [...] 12/31/2020 Immunizations Name Administration Dates Next Due [email or web address] primary monoval ent 12+ yr 0.3mL Purple cap 01/07/2021,12/02/2020 INFLUENZA VACCINE, HIGH-DOSE , QUADR. (FLUZONE HIGH-DOSE QUADRIVALENT; 65Y+), 0.7 ML (HD-IIV4) 05/10/2019,04/17/2018,06/08/2016 PNEUMOCOCCAL PPSV23 07/23/2015 Pneumococcal Pcv13 Conj 09/23/2016 TDAP (7yrs+) 02/08/2018 iNFLUENZA VACCINE, RECOM-LEON, QUADR. (FLUBLOCK QUADRIVALENT; 18Y+) (RIV4) 05/06/2020 Family History Medical History Relation Name Comments Cancer Brother 2 esopgeal CAD (Coronary Artery Disease) Brother 3 Hypertension Brother 4 CAD (Coronary Artery Disease) Father Hypertension Father Cancer Mother Ovarian ca Hypertension Mother Relation Name Status Comments Brother 1 (Age 69) cancer Brother 2 Brother 3 Brother 4 Father (Age 70) [place] Maternal Grandfather Maternal Grandmother Mother CAD; old age Paternal Grandfather Paternal Grandmother Sister Alive Social History Tobacco Use Types Packs/Day Years Used Date Smoking Tobacco: Former Cigarettes 0.3 25 0 08/01/1967 - 08/01/1992 Smokeless Tobacco: Never Alcohol Use Standard Drinks/Week Comments No 0 (1 standard drink = 0.6 oz pur e alcohol) PHQ-2 Answer Date Recorded PHQ2 TOTAL SCORE 0 01/01/2021 Sex and Gender Information Value Date Recorded Sex Assigned at Female 08/07/2021 9:06 AM BELTING INSPECTOR Gender Identity Female 08/07/2021 9:06 AM BELTING INSPECTOR Sexual Orientation Straight 08/07/2021 9: 06 AM BELTING INSPECTOR Last Filed Vital Signs Vital Sign Reading Time Taken Comments Blood Pressure 131/48 05/28/2021 12:14 PM CDT Pulse 92 05/28/2021 12:14 PM CDT Temperature 37.1 C (98.8 F) 05/28/2021 12:14 PM CDT Respiratory Rate 16 05/28/2021 12:14 PM CDT Oxygen Saturation 93% 05/28/2021 12:14 PM CDT Inhaled Oxygen Concentration - - Weight 93.4 kg (206 lb) 08/31/2021 3:10 PM BELTING INSPECTOR Height 160 cm (5' 3 ) 08/31/2021 3:10 PM BELTING INSPECTOR Body Mass Index 36.49 08/31/2021 3:10 PM BELTING INSPECTOR Plan of Treatment Health Maintenance Due Date Last Done Comments BONE DENSITY TESTING 1940 ZOSTER VACCINE (1 of 2) 1991 Respiratory Syncytial Virus (RSV) Vaccine Pt: or over 60 yrs (1 - 1-dose 75+ series) 2016 COVID-19 VACCINE ( - season) 2024 01/07/2021, 12/02/2020 INFLUENZA VACCINE (#1) 2024 , 05/10/2019, 04/17/2018, Additional history exists DEPRESSION SCREENING 08/01/2024 DTAP/TDAP/TD VACCINES (2 - Td or Tdap) 02/09/2028 02/08/2018 PNEUMOCOCCAL VACCINE 50+ Completed 09/23/2016, 07/02 HEPATITIS B VACCINE Aged Out No longe r eligible based on patient's age to complete this topic HIB VACCINE Aged Out No longer eligi ble based on patient's age to complete this topic HPV VACCINE Aged Out No longer eligi ble based on patient's age to complete this topic MENINGOCOCCAL (Group B) VACCINE SHARED DECISION-MAKING Aged Out No longer eligible based on patient's age to complete this topic MENINGOCOCCAL GROUPS A/C/Y/W VACCINE Aged Out No longer eligible based on patient's age to complete this topic Goals Goal Patient Goal Type Associated Problems Recent Progress Patient-Stated? Author Have labs drawn Lifestyle No Harper [place] MA Medical Devices Implanted Type Area Poster Device Identifier Shelf Expiration Date Model / Serial / Lot Screw 3.5mm 13mm Slf-Tap Cortx Evos Strl Implanted:Qty: 3 on 05/27/2021 by Maru Hyatt MD at [facility] Right: [employer] [id number] / / Plate Implanted:Qty: 1 on 05/27/2021 by Maru Hyatt MD at [facility] Right: [employer] [id number] / / Elastic Nail Implanted:Qty: 1 on 05/27/2021 by Maru Hyatt MD at [facility] Right: [employer] [id number] / / Screw 3.5mm 14mm Slf-Tap Cortx Evos Strl Implanted:Qty: 1 on 05/27/2021 by Maru Hyatt MD at [facility] Right: [employer] [id number] / / Screw 2.7mm 4.3mm 14mm T8 2mm Slf-Tap Implanted:Qty: 1 on 05/27/2021 by Maru Hyatt MD at [facility] Right: [employer] [id number] / / Screw 2.7mm 4.5mm 15mm T8 Slf-Tap Cortx Implanted:Qty: 1 on 05/27/2021 by Maru Hyatt MD at [facility] Right: [employer] [id number] / / Screw 2.7mm 4.3mm 18mm T8 2mm Slf-Tap Implanted:Qty: 2 on 05/27/2021 by Maru Hyatt MD at [facility] Right: [employer] [id number] / / Screw 2.7mm 4.5mm 20mm T8 Slf-Tap Cortx Implanted:Qty: 2 on 05/27/2021 by Maru Hyatt MD at [facility] Right: [employer] [id number] / / Screw Implanted:Qty: 1 on 05/27/2021 by Maru Hyatt MD at [facility] Right: [employer] [id number] / / Explanted Type Area Poster Device Identifier Shelf Expiration Date Model / Serial / Lot Wire K 1.6mm 150mm Troc Pnt Ss Fx Strl Explanted:Qty: 3 on 05/27/2021 by Maru Hyatt MD at [facility] Right: [employer] [id number] / / Elastic Nail Explanted:Qty: 1 on 05/27/2021 by Maru Hyatt MD at [facility] Right: [employer] [id number] / / Screw 2.7mm 4.5mm 20mm T7 Slfret Scrdrvr Explanted:Qty: 2 on 05/27/2021 by Maru Hyatt MD at [facility] Right: [employer] [id number] / / Screw Explanted:Qty: 2 on 05/27/2021 by Maru Hyatt MD at [facility] Right: [employer] [id number] / / Advance Directives * Full Code (Latest Code Status on File) Date Activated Date Inactivated Comments 05/27/2021 5:31 PM 05/28/2021 5:36 PM Care Teams Creative Producer Relationship Specialty Start Date End Date Narciso Medrano MD PCP - General 08/17/21
== END 2024-10-12 08:09 | disposition home or self-care (01) ==
LOC: ANHIMG 08:21
DX: K44.9 Diaphragmatic hernia without obstruction or gangrene (principal); R06.09 Other forms of dyspnea
CPT/HCPCS: 71046